=== PATIENT | female | born 1955 | race Caucasian/White ===

== ENCOUNTER 2017-01-19 03:58 | Emergency (ER) | payer MEDICARE, OTHER ==
[2017-01-19 04:01] VITALS: BP 173/82; PULSE 92; RESP 18; TEMP 98.5; O2SAT 96
[2017-01-19] MEDS ORDERED: ATEN50TA7 PO (04:17)
[2017-01-19] MEDS ORDERED: LISI10TA3 PO (04:17)
[2017-01-19] MEDS ORDERED: ZOLO50TA PO (04:17)
[2017-01-19] MEDS ORDERED: K-TA10TA PO (04:17)
[2017-01-19 04:41] VITALS: BP 135/77
--- NOTE | 2017-01-19 04:41 | PD ---
HPI Chief Complaint: Pain: Acute or Chronic Time Seen by Provider: 04:37 Travel History International Travel<30 days: No Contact w/Intl Traveler<30days: No Traveled to known affect area: No History of Present Illness HPI Patient comes in complaining of burning knee pain that she woke this morning the right anterior aspect of her right knee. Patient tried walking it off, but it made the pain worse. Patient denies doing anything else for this. Denies anything making it better. Denies any radiation of the pain. Denies any known injury. Denies any numbness or tingling or previous episodes like this. PFSH Past Medical History Blood Disorders: Yes (HEP C) Depression: Yes Hypertension: Yes Tetanus Vaccination: > 5 Years Influenza Vaccination: No : 1 Para: 1 Past Surgical History Cholecystectomy: Yes Hysterectomy: Yes Social History Alcohol Use: No Tobacco Use: Yes Substance Use: Yes (MARIJUANA) Allergies-Medications (Allergen,Severity, Reaction): Coded Allergies: Cipro (Verified Allergy, Unknown, 01/19/17) Codeine (Verified Allergy, Unknown, 01/19/17) Wellbutrin (Verified Allergy, Unknown, 01/19/17) Reported Meds & Prescriptions Reported Meds & Active Scripts Active Reported Zoloft (Sertraline HCl) 50 Mg Tab 50 Mg PO DAILY Lisinopril 10 Mg Tab 20 Mg PO DAILY K-Tab (Potassium Chloride) 10 Meq Tab 10 Meq PO DAILY Atenolol-Chlorthalidone 50-25 Mg Tab 1 Tab PO DAILY Review of Systems Except as stated in HPI: all other systems reviewed are Neg Physical Exam Narrative GENERAL: Well-developed, overly nourished, in no acute distress, and non-ill appearing. SKIN: Focused skin assessment warm and dry. HEAD: Atraumatic. Normocephalic. EYES: Pupils equal and round. EOMI. No scleral icterus. No injection or drainage. ENT: No nasal bleeding or discharge. Mucous membranes pink and moist. NECK: Trachea midline. Supple. No nuclear rigidity. CARDIOVASCULAR: Dorsal pulses 2+, intact, and equal bilaterally. Capillary refill less than 2 seconds. RESPIRATORY: No accessory muscle use. No respiratory distress. MUSCULOSKELETAL: No obvious deformities. No clubbing. No cyanosis. No edema. Full range of motion. Knee: Negative patellar apprehension, varus and valgus maneuvers, anterior draw test, and Justine test. Pulses equal BL distal to injury. Capillary refill less than 2 seconds distal to injury and equal BL. FROM distal to injury and equal BL. Strength distal to injury equal BL. NV intact distal to injury. Dorsal pulses equal BL. Sensation equal BL 1st web space. Patient reports tenderness with mild soft tissue swelling over the suprapatella bursa right knee. It is not erythematous, afebrile, and without crepitus. NEUROLOGICAL: Awake and alert. No obvious cranial nerve deficits. Motor grossly within normal limits. Normal speech. PSYCHIATRIC: Appropriate mood and affect; insight and judgment normal. Data Data Last Documented VS Vital Signs Date Time Temp Pulse Resp B/P Pulse Ox O2 Delivery O2 Flow Rate FiO2 01/19/17 04:41 80 18 135/77 95 01/19/17 04:01 98.5 Room Air Orders Splint Or Brace Apply/Monitor (01/19/17 04:37) MDM Medical Decision Making Medical Screen Exam Complete: Yes Emergency Medical Condition: Yes Differential Diagnosis Crush, strain, contusion, bursitis, gout, pseudogout, other Narrative Course The patient appears to have acute bursitis involving the right knee. There is no evidence to suggest infectious bursitis at this time. There is no trauma to suspect contusion, strain or fracture. There is no clinical evidence to suggest gout or pseudogout, osteoarthritis, Rheumatoid arthritis, or septic arthritis. There is also no evidence to suggest tendonitis. The patient was instructed on NSAID medication. The patient was offered a prescription for just wants to take [id number] Advil. The patient was instructed on ice packs as well. The patient was instructed to follow-up with orthopedics for reevaluation. The patient agreed with plan. Patient in no obvious distress upon re-evaluation. Any questions/concerns in reference to patient diagnosis/condition discussed and clarified prior to patient's discharge. Reinforced sheer importance of close follow up with patient 's primary physician or primary care clinic and/or orthopedics. Instructed patient to return to ED immediately, if symptoms return/worsen. Pt showed understanding of above instructions. Further instructions and recommendations were detailed in discharge paperwork. Pt ambulated without difficulty out of ED at discharge. Diagnosis Primary Impression: Other bursitis of knee, right knee Patient Instructions: General Instructions, Knee Bursitis (ED) Additional Instructions: Follow-up with your primary care physician and/or orthopedic in 3-5 days for reevaluation. Use [id number] Advil for pain relief. Follow instructions on the packaging. Apply ice to affected area 20 minutes per hour as needed for pain. Wear Reza wrap as needed for comfort. Return to the emergency department if symptoms get worse. Disposition: 01 DISCHARGE HOME Condition: Stable Trenton Barroso Jan 19, 2017 04:41
== END 2017-01-19 05:06 | disposition home or self-care (01) ==
LOC: NEPD 03:58
DX: M70.51 Other bursitis of knee, right knee (principal); B19.20 Unspecified viral hepatitis C without hepatic coma; F32.9 Major depressive disorder, single episode, unspecified; I10 Essential (primary) hypertension; Z72.0 Tobacco use; Z79.899 Other long term (current) drug therapy; Z88.5 Allergy status to narcotic agent; Z88.8 Allergy status to other drugs, medicaments and biological substances
CPT/HCPCS: 99282